=== PATIENT | male | born 1985 | race Two or more races ===

== ENCOUNTER 2025-01-06 21:39 | Emergency (ER) | payer MEDICAID ==
[~2025-01-06] VITALS: Ht 172.7 cm; Wt 76.4 kg
[2025-01-06 21:48] VITALS: TEMP 98.8
[2025-01-06 22:08] LABS: APPEARANCE,URINE HAZY (CLEAR); GLUCOSE, URINE (UA) NEGATIVE (NEGATIVE); LEUKOCYTE ESTERASE ,URINE LARGE (NEGATIVE); NITRATE,URINE NEGATIVE (NEGATIVE); OCCULT BLOOD,URINE MODERATE (NEGATIVE); SPECIFIC GRAVITIY, URINE 1.011 (1.003-1.030)
[2025-01-06 22:19] VITALS: BP 117/75; PULSE 88; RESP 16; O2SAT 97
[2025-01-06 22:19] LABS: SQUAMOUS EPITHELIAL CELL,UR Few /LPF (None Seen)
[2025-01-06] MEDS ORDERED: CEPH-558 PO (22:54)
[2025-01-06] MEDS: LIDOCAINE/PF 1% 2 ML VIAL IM ONE (22:58)
[2025-01-06] MEDS: CefTRIAXone SODIUM 1 GM/VIAL IM ONE (22:58)
== END 2025-01-06 23:44 | disposition home or self-care (01) ==
LOC: EMS 21:39
DX: N39.0 Urinary tract infection, site not specified (principal)
CPT/HCPCS: 99283; 81001; 87086; 96372; J0696; J3490

== ENCOUNTER 2025-02-09 13:47 | Emergency (ER) | payer MEDICAID ==
[~2025-02-09] VITALS: Ht 172.7 cm; Wt 77.3 kg
[~2025-02-09 13:47] MED LIST: CEPH-558 PO
[2025-02-09 13:59] VITALS: TEMP 98.5
[2025-02-09 14:33] LABS: APPEARANCE,URINE HAZY (CLEAR); GLUCOSE, URINE (UA) NEGATIVE (NEGATIVE); LEUKOCYTE ESTERASE ,URINE LARGE (NEGATIVE); NITRATE,URINE NEGATIVE (NEGATIVE); OCCULT BLOOD,URINE SMALL (NEGATIVE); SPECIFIC GRAVITIY, URINE 1.029 (1.003-1.030)
[2025-02-09 16:00] VITALS: BP 124/78; PULSE 69; RESP 17; O2SAT 100
[2025-02-09] MEDS: CefTRIAXone SODIUM 1 GM/VIAL IM ONE (17:10)
[2025-02-09] MEDS: LIDOCAINE/PF 1% 2 ML VIAL IM ONE (17:11)
[2025-02-09] MEDS: AZITHROMYCIN 500 MG TABLET PO ONE (17:11)
== END 2025-02-09 17:46 | disposition home or self-care (01) ==
LOC: EMS 13:48
DX: N34.2 Other urethritis (principal)
CPT/HCPCS: 99283; 81001; 87086; 87491; 87591; 96372; J0456; J0696; J3490